=== PATIENT | female | born 1990 | race Caucasian/White ===

== ENCOUNTER 2016-06-12 06:22 | Emergency (ER) | payer BC ==
[~2016-06-12] VITALS: Ht 160 cm; Wt 55.2 kg
[~2016-06-12 06:22] MED LIST: PEPCID20 MG PO; PERCOCET 5/31 TABLET PO
[2016-06-12 07:15] LABS: EOSINOPHIL COUNT 0.2 K/uL (0-0.3); IMMATURE GRANULOCYTE (%) 0.2 % (0.0-0.7); IMMATURE GRANULOCYTE COUNT 0.3 K/uL; LYMPHOCYTE COUNT 2.2 K/uL (1.0-2.8); MCH 30.9 PG (29.0-34.0); MCHC 34.9 G/DL (30.0-36.0); MCV 88.5 FL (83-99); MEAN PLAT.VOLUME 9.4 uM^3 (9.5-12.4); MONOCYTE (%) 4.7 % (3-12); MONOCYTE COUNT 0.9 K/uL (0-0.8); NEUTROPHIL (%) 82.1 % (45-76); NEUTROPHIL COUNT 15.1 K/uL (1.8-6.4); PLATELET COUNT 418 K/uL (156-360); RBC DIS.WIDTH-CV 11.6 % (11.8-14.6); RBC DIS.WIDTH-SD 37.4 % (39-53); RED BLOOD COUNT 4.18 M/uL (3.80-5.20); WHITE BLOOD COUNT 18.3 K/uL (4.1-10.2)
[2016-06-12 07:35] LABS: CHLORIDE 105 mEq/L (99-109); POTASSIUM 3.5 mEq/L (3.7-5.4); SODIUM 139 mEq/L (136-147)
[2016-06-12 07:37] LABS: GLUCOSE 121 mg/dL (70-99)
[2016-06-12 07:38] LABS: ANION GAP 13 MEQ/L (2-14)
[2016-06-12 07:39] LABS: TOTAL BILIRUBIN 0.5 mg/dL (0.0-1.0)
[2016-06-12 07:40] LABS: ALKALINE PHOSPHATASE 74 IU/L (3-129)
[2016-06-12 07:41] LABS: GFR ESTIMATE (CALCULATED) > 59 mL/min/
[2016-06-12 07:42] LABS: UREA NITROGEN (BUN) 12 mg/dL (9-23)
[2016-06-12 07:44] LABS: LIPASE 14 U/L (1.0-51.0)
[2016-06-12] MEDS ORDERED: SPRINTEC1 EACH PO (07:49)
[2016-06-12] MEDS ORDERED: ALBUTEROL0.63 MG/3 IH (07:51)
[2016-06-12 08:23] LABS: ADD MIUA? YES; BILIRUBIN NEGATIVE; BLOOD SMALL; COLOR LT YELLOW ((YELLOW)); GLUCOSE (STRIP) NEGATIVE; KETONES 40; LEUKOCYTES NEGATIVE; NITRITE NEGATIVE; PROTEIN (STRIP) NEGATIVE; SPECIFIC GRAVITY 1.011 (1.000-1.030); UROBILINOGEN 0.2 MG/DL (0.2-1.0)
[2016-06-12 08:29] LABS: INTERNAL CONTROL VALID? YES
[2016-06-12 08:35] LABS: BACTERIA 1+; CASTS NONE SEEN /LPF; CRYSTALS NONE SEEN; EPITHELIAL CELLS 1+; MUCUS NONE SEEN; PATHOLOGICAL CAST NONE SEEN; RED BLOOD CELLS 0-5 /HPF (0-5); SMALL ROUND CELL NONE SEEN; UCUL ADDED? NO; WHITE BLOOD CELLS 0-5 /HPF (0-5); YEAST-LIKE CELL NONE SEEN
[2016-06-12] MEDS ORDERED: ZOFRAN ODT4 MG PO (12:33)
[2016-06-12 12:39] VITALS: BP 125/89
== END 2016-06-12 12:40 | disposition home or self-care (01) ==
LOC: EME 06:22
PROVIDERS: Emergency Medicine
DX: B34.9 Viral infection, unspecified (principal); R10.12 Left upper quadrant pain; R11.2 Nausea with vomiting, unspecified; R19.7 Diarrhea, unspecified; J45.909 Unspecified asthma, uncomplicated
CPT/HCPCS: 74020; 74176; 80053; 81003; 83605; 83690; 84703; 85025; 93005; 99281; 99285; J2270; J2405; J7030